=== PATIENT | male | born 1975 | race Caucasian/White ===

== ENCOUNTER 2016-08-20 00:25 | Emergency (ER) | payer OTHER ==
[~2016-08-20] VITALS: Ht 175.3 cm; Wt 108.0 kg
[~2016-08-20 00:25] MED LIST: AMLODIPINE10 M1; ATENOLOL100 MG PO; DEPAKOTE ER500 MG PO; IBUPROFEN800 MG; KEPPRA1000 MG PO; MOTRIN800 M1; NEURONTIN300 MG PO; NEURONTIN400 MG PO; NORVASC10 MG PO; SOMA350 M1; TENORMIN100 MG PO; ULTRAM100 MG PO; ULTRAM50 MG
[2016-08-20 00:32] VITALS: BP 163/88
--- NOTE | 2016-08-20 00:49 | NUR ---
PATIENT TO ER BED 4
--- NOTE | 2016-08-20 00:49 | NUR ---
40Y M BIB C/O SEIZURE 3O MIN AGO, AT PT BROTHER HOUSE, STATES HE LOSS CONSCIOUSNESS, FELL AND LANDED ON HIS BACK AND LEFT LEG. PT HAS A HX OF SEIZURE AND HTN. PT STATES HE TOOK KEPPRA TODAY, GABAPENTIN, ATENOLOL, AND AMLODIPINE. NO S/S OF RESP DISTRESS, PT ON CERTIFIED ENDOSCOPY TECHNICIAN. SEIZURE PRECAUTIONS INITIATED.
--- NOTE | 2016-08-20 01:00 | NUR ---
OPAL DUFFY EVALUATING PT AT BED SIDE.
[2016-08-20] MEDS ORDERED: NACL 0.9% 1,000 ML IV ONE (01:05)
[2016-08-20] MEDS ORDERED: LORazepam 2 MG/ML VIAL IVP ONE (01:05)
[2016-08-20] MEDS ORDERED: HYDROmorphone 1 MG/ML AMP IVP ONE (01:05)
--- NOTE | 2016-08-20 02:12 | NUR ---
PT BACK FROM X-RAY
[2016-08-20] MEDS ORDERED: fentaNYL 0.05 MG/ML VIAL IM ONE (02:25)
[2016-08-20 02:50] VITALS: BP 125/77
== END 2016-08-20 02:50 | disposition home or self-care (01) ==
LOC: MED 00:25
DX: S83.92XA Sprain of unspecified site of left knee, initial encounter (principal); S39.012A Strain of muscle, fascia and tendon of lower back, initial encounter; G40.909 Epilepsy, unspecified, not intractable, without status epilepticus; I10 Essential (primary) hypertension; Z88.1 Allergy status to other antibiotic agents; Z88.2 Allergy status to sulfonamides; Z88.8 Allergy status to other drugs, medicaments and biological substances; Z90.89 Acquired absence of other organs; Z79.899 Other long term (current) drug therapy; X58.XXXA Exposure to other specified factors, initial encounter; Y93.89 Activity, other specified; Y92.89 Other specified places as the place of occurrence of the external cause; Y99.8 Other external cause status
CPT/HCPCS: 36415; 72100; 73560; 80048; 80305; 81001; 96361; 96372; 96374; 96375; 99285; G0482; J1170; J2060; J3010; J7030

== ENCOUNTER 2016-09-07 07:34 | Emergency (ER) | payer OTHER ==
[~2016-09-07] VITALS: Ht 177.8 cm; Wt 108.9 kg
[2016-09-07 07:57] VITALS: BP 149/86
--- NOTE | 2016-09-07 07:58 | NUR ---
PT STATES HAVING LOWER BACK PAIN FOR THREE HOURS . DENIES N/V/D; SKIN IS PINK/WARM/DRY; AAOX4 WITH EVEN AND NONSTEADY GAIT; LUNGS CLEAR BL; HR EVEN AND REGULAR; PT DENIES ANY FEVER, CP, SOB, OR COUGH AT THIS TIME; PATIENT STATES PAIN OF 8/10 AT THIS TIME; VSS; PATIENT POSITIONED FOR COMFORT; HOB ELEVATED; BEDRAILS UP X2; BED DOWN. ER MD MADE AWARE OF PT STATUS.
--- NOTE | 2016-09-07 08:15 | NUR ---
DR. ARROYO AT BEDSIDE TO ASSESS PT.
[2016-09-07] MEDS ORDERED: HYDROmorphone PFS 2 MG/ML SYR IM ONE (08:20)
[2016-09-07 08:44] VITALS: BP 134/68
--- NOTE | 2016-09-07 08:44 | NUR ---
Patient discharged with v/s stable. Written and verbal after care instructions given and explained. Patient verbalized understanding. Ambulatory with steady gait. All questions addressed prior to discharge. Advised to follow up with PMD.
== END 2016-09-07 08:44 | disposition home or self-care (01) ==
LOC: MED 07:55
DX: M54.41 Lumbago with sciatica, right side (principal); R56.9 Unspecified convulsions; I10 Essential (primary) hypertension; M54.42 Lumbago with sciatica, left side; Z88.2 Allergy status to sulfonamides; Z88.1 Allergy status to other antibiotic agents; Z88.8 Allergy status to other drugs, medicaments and biological substances; Z79.899 Other long term (current) drug therapy
CPT/HCPCS: 96372; 99283; J1170